=== PATIENT | male | born 1980 | race Caucasian/White ===

== ENCOUNTER 2023-11-28 21:14 | Emergency (ER) | payer SELFPAY ==
[2023-11-28 21:18] VITALS: BP 137/91; PULSE 63; RESP 16; TEMP 36.3; O2SAT 97; BMI 25.7
--- NOTE | 2023-11-28 21:37 | ED_ITS ---
HPI - Recheck/Abnormal Lab/Rx General Chief Complaint: Recheck/Abnormal Lab/Rx Stated Complaint: fit for long-term Time Seen by Provider: 11/28/23 21:37 Source: patient and police Mode of arrival: Ambulatory History of Present Illness HPI narrative: 43-year-old male arrested by police officers, brought here for medical clearance, admits to recent alcohol use, denies pain to chest abdomen legs head neck. Bilateral wrist pain wearing cuss in back. No other complaints Related Data Allergies Allergy/AdvReac Type Severity Reaction Status Date / Time BEE VENOM Allergy Intermediate localized Uncoded 11/28/23 21:18 swelling CAT DANDER Allergy Intermediate sneezing/co Uncoded 11/28/23 21:18 ngestion CULTIVATED OAT POLLEN Allergy Intermediate sneezing/co Uncoded 11/28/23 21:18 ngestion DOG DANDER Allergy Intermediate sneezing/co Uncoded 11/28/23 21:18 ngestion Patient History Social History Smoking Status: Never smoker Smoking Status: Never smoker tobacco type: smokeless tobacco alcohol intake frequency: 3 or more drinks per day Substance Use Type: does not use Exam Narrative Exam Narrative: GENERAL: Well-developed patient, in mild distress. HEAD: Atraumatic. Normocephalic. EYES: Pupils equal round and reactive. Extraocular motions intact. No scleral i cterus. No injection or drainage. ENT: Nose without bleeding, purulent drainage. Throat without erythema, tonsillar hypertrophy or exudate. Airway patent. NECK: Trachea midline. Non tender CARDIOVASCULAR: Regular rate and rhythm without murmurs, gallops, or rubs. RESPIRATORY: Clear to auscultation. Breath sounds equal bilaterally. No wheezes, rales, or rhonchi. GASTROINTESTINAL: Abdomen soft, non-tender, nondistended. EXTREMITIES: No edema or joint tenderness. Hands behind back in handcuffs sitting on gurney with PD nearby, wrist skin and hands without obvious injuries BACK: Nontender without deformity or crepitance. No flank tenderness. NEURO: AOx3. SKIN: No rash or erythema of visible areas Initial Vital Signs Initial Vital Signs: Vital Signs Temperature 97.3 F L 11/28/23 21:18 Pulse Rate 63 11/28/23 21:18 Respiratory Rate 16 11/28/23 21:18 Blood Pressure 137/91 H 11/28/23 21:18 Pulse Oximetry 97 11/28/23 21:18 Oxygen Delivery Method Room Air 11/28/23 21:18 Course Vital Signs Vital signs: Vital Signs - 8 hr 11/28/23 21:18 11/28/23 22:20 Temperature 97.3 F L 97.8 F Pulse Rate 63 74 Respiratory Rate 16 16 Blood Pressure 137/91 H 132/82 Pulse Oximetry 97 98 Oxygen Delivery Method Room Air Room Air MDM - Recheck/Abnormal Lab/Rx MDM Narrative Medical decision making narrative: Here for medical clearance, with police officers, in handcuffs spine back, recent alcohol use noted. No trauma known. Unremarkable exam, ambulatory, normal room-air sat, no respiratory distress. Medically cleared for discharge with law enforcement personnel. Discharge Plan Departure Patient Disposition: Home Clinical Impression: Medical clearance for incarceration Activity Restrictions/Additional Instructions: Examination for medical clearance, ambulatory, unremarkable vital signs, clear speech, cooperative with exam, no respiratory distress, no fever on triage, normal oxygenation on room air. Medically cleared for discharge with law enforcement personnel. Patient is fit for long-term Referrals: Otilio Brito MD [Primary Care Provider] - Stand Alone Forms: Patient Portal/API
[2023-11-28 22:20] VITALS: BP 132/82; PULSE 74; RESP 16; TEMP 36.6; O2SAT 98
== END 2023-11-28 22:15 | disposition home or self-care (01) ==
PROVIDERS: Emergency Provider Emergency Medicine; PCP Family Medicine
DX: Z00.8 Encounter for other general examination (principal)
CPT/HCPCS: 99281

== ENCOUNTER 2024-02-07 17:40 | Emergency (ER) | payer SELFPAY ==
--- NOTE | 2024-02-07 17:42 | ED_ITS ---
HPI - General Adult General Chief complaint: Recheck/Abnormal Lab/Rx Stated complaint: Fit for intermediate Time Seen by Provider: 02/07/24 17:42 Source: patient, RN notes reviewed and police Mode of arrival: other Limitations: no limitations History of Present Illness HPI narrative: 43-year-old male with no reported medical problems presents for medical clearance for intermediate. Reportedly blew a 0.32 with law enforcement. No trauma or injuries patient does not have any other complaints. Patient is not altered. He is ambulating without issues. He is only complaint of his wrist hurts where he is handcuffed. Patient states no headaches no chest pain no shortness of breath no other nausea or vomiting no GI symptoms. No urinary symptoms. Denies any trauma falls or other injuries. Patient states no daily medications. Denies any major surgeries. Uses smokeless tobacco, does drink alcohol regularly, no recreational drugs. Related Data Allergies Allergy/AdvReac Type Severity Reaction Status Date / Time BEE VENOM Allergy Intermediate localized Uncoded 11/28/23 21:18 swelling CAT DANDER Allergy Intermediate sneezing/co Uncoded 11/28/23 21:18 ngestion CULTIVATED OAT POLLEN Allergy Intermediate sneezing/co Uncoded 11/28/23 21:18 ngestion DOG DANDER Allergy Intermediate sneezing/co Uncoded 11/28/23 21:18 ngestion Review of Systems Review of Systems ROS Unobtainable: All systems reviewed & are unremarkable except as noted in HPI and below Patient History Social History Smoking Status: Never smoker Smoking Status: Never smoker tobacco type: smokeless tobacco alcohol intake frequency: 3 or more drinks per day Substance Use Type: does not use Exam Narrative Exam Narrative: GEN: well nourished, well appearing male, alert and oriented x 3, patient appears to be in mild distress. Patient has clear speech, cooperative with the exam. HEENT: Atraumatic, pupils are equal round reactive to light, extraocular movements are intact, nares are clear, there is no conjunctival pallor. HEART: Regular rate and rhythm without murmur, clicks, rubs. No carotid bruits, pulses are equal in upper and lower extremities LUNGS:Lungs clear to auscultation, no wheezes, rales, crackles, chest moves symmetrically ABD:bowel sounds normal, soft, non-tender, no guarding, rebound, rigidity, no masses noted, no hepatosplenomegaly :No CVA tenderness MSCL: Non-tender, no muscle atrophy, muscles strength 5/5 upper and lower extremities, full range of motion, normal gait NEURO:CN 2-12 intact, sensation normal. SKIN: Rash, erythema or other skin changes. Initial Vital Signs Initial Vital Signs: Vital Signs Temperature 98.8 F 02/07/24 17:45 Pulse Rate 108 H 02/07/24 17:45 Respiratory Rate 17 02/07/24 17:45 Blood Pressure 135/97 H 02/07/24 17:45 Pulse Oximetry 98 02/07/24 17:45 Oxygen Delivery Method Room Air 02/07/24 17:45 Medical Decision Making MDM Narrative Medical decision making narrative: 43-year-old male brought for fit for intermediate, patient has no complaints, no trauma or injury. Reportedly blew at 0.32 in the field. Patient is ambulatory alert conversant appropriate on examination he does not appear to be overly intoxicated at this time. Patient is slightly tachycardic but notes he is feeling very frustrated. He otherwise is well-appearing no other clear medical issues at this time felt appropriate for discharge. Discharge Plan Departure Patient Disposition: Released, Other Clinical Impression: Medical clearance for incarceration Activity Restrictions/Additional Instructions: Please return for any new changes to mental status, severe headaches, chest pain or shortness of breath, persistent vomiting, passing out, new swelling in extremities difficulty with ambulation or other new or concerning changes. Referrals: Otilio Brito MD [Primary Care Provider] - Stand Alone Forms: Patient Portal/API
[2024-02-07 17:45] VITALS: BP 135/97; PULSE 108; RESP 17; TEMP 37.1; O2SAT 98
== END 2024-02-07 17:53 | disposition home or self-care (01) ==
PROVIDERS: Emergency Provider Emergency Medicine; PCP Family Medicine
DX: Z00.8 Encounter for other general examination (principal)
CPT/HCPCS: 99281